=== PATIENT | female | born 1945 | race Two or more races ===

== ENCOUNTER 2019-05-08 11:14 | Emergency (ER) | payer OTHER ==
[~2019-05-08] VITALS: Ht 157.5 cm; Wt 56.7 kg
--- NOTE | 2019-05-08 11:15 | NUR ---
"Chest pain, while sitting at home; heavy-like 12/20sensation with mild SOB" pt [id number], -sob, nad noted, vss ,pending md lara
[2019-05-08 11:27] LABS: HEMOGLOBIN 10.8 g/dL (11.5-14.8); LYMPHOCYTES # (AUTO) 0.2 /CMM (0.8-4.8); NEUTROPHILS # (AUTO) 3.3 /CMM (1.8-8.9); WHITE BLOOD COUNT (AUTO) 4.8 K/uL (4.3-11.0)
[2019-05-08 11:30] LABS: BASOPHILS % (AUTO) 0.2 % (0.0-2.0); EOSINOPHILS % (AUTO) 0.3 % (0.0-6.0); HEMATOCRIT 33 % (33-45); LYMPHOCYTES % (AUTO) 3.4 % (20.0-44.0); MEAN CORPUSCULAR HGB CONC 33 g/dl (31.0-36.0); MEAN CORPUSCULAR VOLUME 83 fL (82-100); MONOCYTES # (AUTO) 1.3 /CMM (0.1-1.30); MONOCYTES % (AUTO) 27.6 % (2.0-12.0); NEUTROPHILS % (AUTO) 68.5 % (43.0-81.0); RED BLOOD CELL COUNT(AUTO) 3.94 MIL/uL (4.0-5.2)
[2019-05-08 11:32] LABS: PLATELET COUNT (AUTO) 47 /CMM (150-450)
--- NOTE | 2019-05-08 11:38 | NUR ---
CALLED [facility], SPOKE WITH DANIE SHARMA# [id number] FOR MEDICAL RECORD.
[2019-05-08 11:44] LABS: CARBON DIOXIDE 33 mmol/L (21-32); CHLORIDE 92 mmol/L (98-107); CREATININE 0.9 mg/dL (0.6-1.3); GLUCOSE 115 mg/dL (74-106); SODIUM SERUM 133 mmol/L (136-145); UREA NITROGEN, BLOOD 17 mg/dL (7-18)
[2019-05-08 11:46] LABS: POTASSIUM 2.7 mmol/L (3.5-5.1)
[2019-05-08 11:51] LABS: LYMPHOCYTES % (MANUAL) 5 % (16-48); MONOCYTES % (MANUAL) 26 % (0-11.0); NEUTROPHILS % (MANUAL) 69 (42-76)
[2019-05-08 11:52] LABS: ALANINE AMINOTRANSFERASE 13 U/L (12-78); ALKALINE PHOSPHATASE 84 U/L (46-116); ASPARTATE AMINOTRANSFERASE 24 U/L (15-37); BILIRUBIN,DIRECT 0.3 mg/dL (0.0-0.2); BILIRUBIN,TOTAL 1.1 mg/dL (0.2-1.0); TOTAL PROTEIN, SERUM 7.6 g/dL (6.4-8.2)
[2019-05-08] MEDS ORDERED: POTASSIUM CL. PREMIX PERIPHER. 200 ML ONE (12:16)
[2019-05-08] MEDS: POTASSIUM CL. PREMIX PERIPHER. 50 ML IV SCH ×4 (12:27→15:30)
[2019-05-08] MEDS ORDERED: NITROGLYCERIN PACKET 1 GM PACKET ONE (12:52)
[2019-05-08] MEDS ORDERED: CLOPIDOGREL BISULFATE 75 MG TABLET PO ONE (13:00)
[2019-05-08] MEDS ORDERED: NITROGLYCERIN PACKET 1 GM PACKET TD ONE (13:00)
--- NOTE | 2019-05-08 14:56 | NUR ---
KOMAL FROM [facility] CALLED PT WILL GO TO [place] MEETING ACCEPTING IS DR. TOBAR TO THE ED. [phone] ALS TRANSPORT BEING ARRANGED PICKUP TIME OF 1600 WITH [facility].
--- NOTE | 2019-05-08 15:21 | NUR ---
REPORT GIVEN TO VANDANA SALVAGE WINDER NURSE AT [facility]
[2019-05-08 16:00] VITALS: BP 170/61
--- NOTE | 2019-05-08 16:31 | NUR ---
PT LEFT IN STABLE CONDITION, PT LEFT VIA [facility], [facility], VSS, NAD NOTED, REPORT GIVEN TO AMBULANCE STAFF.\
== END 2019-05-08 16:33 | disposition short-term general hospital (02) ==
LOC: ER 11:21
DX: R07.89 Other chest pain (principal); I70.0 Atherosclerosis of aorta; I10 Essential (primary) hypertension; Z85.048 Personal history of other malignant neoplasm of rectum, rectosigmoid junction, and anus; Z95.1 Presence of aortocoronary bypass graft; Z98.890 Other specified postprocedural states; Z88.6 Allergy status to analgesic agent; Z88.0 Allergy status to penicillin; Z88.2 Allergy status to sulfonamides; Z88.1 Allergy status to other antibiotic agents; Z60.2 Problems related to living alone; Z91.048 Other nonmedicinal substance allergy status; Z88.8 Allergy status to other drugs, medicaments and biological substances
CPT/HCPCS: 36415; 71045; 80048; 80076; 84484; 85025; 93005 ×3; 99285; J3480; J7040